=== PATIENT | female | born 1950 | race Caucasian/White ===

== ENCOUNTER 2017-01-06 13:15 | Day surgery (SDC) | payer BC ==
[2017-01-06 13:24] VITALS: BP 116/69
== END 2017-01-06 13:16 | disposition home or self-care (01) ==
LOC: AMB 13:15
PROVIDERS: ATTEND Ophthalmology
PROC: 085K3ZZ Destruction of Left Lens, Percutaneous Approach (ICD-10-PCS; principal; 2017-01-06 14:05)
DX: H26.492 Other secondary cataract, left eye (principal)